=== PATIENT | female | born 1940 | race African-American/Black ===

== ENCOUNTER 2016-12-20 10:56 | Emergency (ER) | payer MEDICARE, BC, OTHER ==
[~2016-12-20] VITALS: Ht 167.6 cm; Wt 90.0 kg
[~2016-12-20 10:56] MED LIST: ARIC5TAB PO; ASPI81TA11 PO; LOSA50TA PO; PRIL40CA PO
[2016-12-20 11:01] VITALS: BP 147/78; PULSE 56; RESP 16; TEMP 97.8; O2SAT 100
[2016-12-20] MEDS ORDERED: ASPI81CH CHEW (11:17)
[2016-12-20] MEDS ORDERED: LOSA50TA PO (11:17)
[2016-12-20] MEDS ORDERED: DONE5TAB7 PO (11:17)
[2016-12-20] MEDS ORDERED: PYRI200T4 PO (11:17)
[2016-12-20] MEDS ORDERED: OMEP20TA PO (11:17)
[2016-12-20 11:18] LABS: BLOOD, URINE TRACE (NEG); GLUCOSE,URINE NEG (NEG); KETONE, URINE NEG (NEG)
[2016-12-20 11:22] LABS: NITRITE,URINE POS (NEG)
[2016-12-20 11:23] LABS: METHOD OF COLLECTION CLEAN CATCH; URINE COLOR DARK-YELLOW (YELLW/STRAW)
[2016-12-20 11:26] LABS: BACTERIA, URINE RARE /hpf; COMMENT (UR) CULTURE INDICATED; CULTURE IF INDICATED CULTURE INDICATED; RBC, URINE 0-3 /hpf (0-3); SQUAMOUS EPITHELIAL CELL URINE 0-2 /hpf (0-5)
--- NOTE | 2016-12-20 11:33 | PD ---
HPI Chief Complaint: Complaint Time Seen by Provider: 11:32 Travel History International Travel<30 days: No Contact w/Intl Traveler<30days: No Traveled to known affect area: No History of Present Illness HPI 76-year-old female with a history of hypertension and GERD presents to the emergency department for evaluation of itching and burning with urination for one week. Patient states she feels as though she has a urinary tract infection. States she was seen at an urgent care clinic 3 days ago and was prescribed Pyridium which she has been taking but her symptoms have persisted. She has not taken any antibiotics for this so far. She states she does have a history of urge incontinence and has to wear adult diapers regularly. She denies a fever, chills, nausea, vomiting, abdominal pain, vaginal discharge. No other complaints. PFSH Past Medical History Hx Anticoagulant Therapy: Yes (asa 81mg) Heart Rhythm Problems: Yes ("SLOW HEART RATE") Cardiovascular Problems: Yes (htn on meds) High Cholesterol: Yes Dementia: Yes Diminished Hearing: No GERD: Yes Hypertension: Yes Immunizations Current: Yes Tetanus Vaccination: Unknown Influenza Vaccination: Yes ?: Not Menopausal: Yes Past Surgical History Abdominal Surgery: Yes (GASTRIC BYPASS) Cholecystectomy: Yes Hysterectomy: Yes Other Surgery: Yes (CARPAL TUNNAL) Social History Alcohol Use: Yes (~2 GLASSES WINE DAILY) Tobacco Use: No Substance Use: No Allergies-Medications (Allergen,Severity, Reaction): Coded Allergies: No Known Allergies (Unverified , 12/20/16) Reported Meds & Prescriptions Reported Meds & Active Scripts Active Keflex (Cephalexin) 500 Mg Cap 500 Mg PO Q12H 7 Days Reported Aspirin 81 Mg Chew 81 Mg CHEW DAILY Donepezil 5 Mg Tab 5 Mg PO HS Omeprazole 20 Mg Tab 20 Mg PO DAILY Losartan (Losartan Potassium) 50 Mg Tab 50 Mg PO DAILY Pyridium (Phenazopyridine HCl) 200 Mg Tab 200 Mg PO Q8H PRN Review of Systems Except as stated in HPI: all other systems reviewed are Neg Physical Exam Narrative GENERAL: Well-nourished and well-developed pleasant female patient in no acute distress who is nontoxic appearing. SKIN: Warm and dry. HEAD: Normocephalic and atraumatic. EYES: No injection, drainage, or hyphema noted. PERRLA. EOMI. ENT: No nasal drainage noted. Oropharynx is clear. NECK: Supple and the trachea is midline. CARDIOVASCULAR: Regular rate and rhythm. RESPIRATORY: Breath sounds are equal bilaterally with no accessory muscle use, wheezing, rhonchi, or crackles. GASTROINTESTINAL: Abdomen is soft, non-tender, and nondistended. NEUROLOGICAL: Awake, alert, and oriented. Normal speech and gait. Cranial nerves are grossly intact. Data Data Last Documented VS Vital Signs Date Time Temp Pulse Resp B/P Pulse Ox O2 Delivery O2 Flow Rate FiO2 12/20/16 11:01 97.8 56 16 147/78 100 Orders Urinalysis - C+S If Indicated (12/20/16 11:06) Urine Culture (12/20/16 11:05) Labs Laboratory Tests Test 12/20/16 11:05 Urine Collection Type CLEAN CATCH Urine Color DARK-YELLOW Urine Turbidity CLEAR Urine pH 6.0 Urine Specific [place] 1.010 Urine Protein NEG mg/dL Urine Glucose (UA) NEG mg/dL Urine Ketones NEG mg/dL Urine Occult Blood TRACE Urine Nitrite POS Urine Bilirubin NEG Urine Leukocyte Esterase TRACE Urine RBC 0-3 /hpf Urine WBC 3-5 /hpf Urine WBC Clumps RARE Urine Squamous Epithelial 0-2 /hpf Cells Urine Bacteria RARE /hpf Microscopic Urinalysis Comment CULTURE INDICATED MDM Medical Decision Making Medical Screen Exam Complete: Yes Emergency Medical Condition: Yes Differential Diagnosis Urethritis versus cystitis versus vaginitis Narrative Course 76-year-old female presents to the emergency room for evaluation of burning and itching with urination for one week. Patient is afebrile, vital signs are stable. Abdominal examination is benign. Urinalysis shows trace occult blood, positive nitrites, trace leukocyte esterase , rare white blood cell clumps, rare bacteria. This consistent with urinary tract infection and the patient will be treated with Keflex. Discussed supportive care and advised follow-up with her PCP. Patient verbalizes understanding and agreement with treatment plan. Diagnosis Primary Impression: Urinary tract infection Qualified Code: N30.01 - Acute cystitis with hematuria Referrals: Primary Care Physician Patient Instructions: General Instructions, Urinary Tract Infection in Women ( ED) Additional Instructions: Take medications as prescribed. Follow-up with your Primary Care Physician. Return to the ED for any acute worsening of symptoms. Med/Other Pt SpecificInfo: Prescription(s) given Scripts Cephalexin (Keflex)500 Mg Ars529 Mg PO Q12H 7 Days Ref 0 Prov:Hollis Williamson MD 12/20/16 Disposition: 01 DISCHARGE HOME Condition: Stable Dana Riley Dec 20, 2016 11:33
[2016-12-20] MEDS ORDERED: CEPH-460 PO (11:34)
== END 2016-12-20 11:43 | disposition home or self-care (01) ==
LOC: PHEFT 10:56
DX: N30.01 Acute cystitis with hematuria (principal); B96.20 Unspecified Escherichia coli [E. coli] as the cause of diseases classified elsewhere; I10 Essential (primary) hypertension; K21.9 Gastro-esophageal reflux disease without esophagitis; N39.41 Urge incontinence; E78.00 Pure hypercholesterolemia, unspecified; F03.90 Unspecified dementia, unspecified severity, without behavioral disturbance, psychotic disturbance, mood disturbance, and anxiety; Z79.82 Long term (current) use of aspirin; Z86.79 Personal history of other diseases of the circulatory system
CPT/HCPCS: 81001; 87077; 87086; 87186; 99283

== ENCOUNTER 2017-07-12 14:27 | Emergency (ER) | payer MEDICARE, BC, OTHER ==
[~2017-07-12] VITALS: Ht 167.6 cm; Wt 87.8 kg
[~2017-07-12 14:27] MED LIST changes: -ARIC5TAB PO; +ASPI81CH CHEW; -ASPI81TA11 PO; +CEPH-460 PO; +DONE5TAB7 PO; +OMEP20TA PO; -PRIL40CA PO; +PYRI200T4 PO
[2017-07-12 14:38] VITALS: BP 145/67; PULSE 49; RESP 18; TEMP 97.3; O2SAT 99
--- NOTE | 2017-07-12 15:30 | PD ---
HPI Chief Complaint: Skin Problem Time Seen by Provider: 15:25 Travel History International Travel<30 days: No Contact w/Intl Traveler<30days: No Traveled to known affect area: No History of Present Illness HPI 76 YO F presents to the ED for evaluation of approximately 8 hour history of painful rash on the left breast. Patient states that the pain is stinging pain. She denies fevers or chills. She denies known injury. No known new exposures. She has a history of shingles on the forehead in the past and states this is similar feeling. PFSH Past Medical History Hx Anticoagulant Therapy: Yes (asa 81mg) Heart Rhythm Problems: Yes ("SLOW HEART RATE") Cardiovascular Problems: Yes (BRADYCARDIA) High Cholesterol: Yes Dementia: Yes Diminished Hearing: No GERD: Yes Hypertension: Yes Immunizations Current: Yes ?: Not Menopausal: Yes Past Surgical History Abdominal Surgery: Yes (GASTRIC BYPASS) Cholecystectomy: Yes Hysterectomy: Yes Other Surgery: Yes (CARPAL TUNNAL) Social History Alcohol Use: Yes (~2 GLASSES WINE DAILY) Tobacco Use: No Substance Use: No Allergies-Medications (Allergen,Severity, Reaction): Coded Allergies: No Known Allergies (Unverified , 07/12/17) Reported Meds & Prescriptions Reported Meds & Active Scripts Active Tramadol (Tramadol HCl) 50 Mg Tab 50 Mg PO Q6H PRN Valacyclovir (Valacyclovir HCl) 1,000 Mg Tab 1,000 Mg PO TID 7 Days Reported Aspirin 81 Mg Chew 81 Mg CHEW DAILY Donepezil 5 Mg Tab 20 Mg PO HS Omeprazole 20 Mg Tab 20 Mg PO DAILY Losartan (Losartan Potassium) 50 Mg Tab 50 Mg PO DAILY Review of Systems Except as stated in HPI: all other systems reviewed are Neg Physical Exam Narrative GENERAL: Well-nourished, well-developed patient. SKIN: Focused skin assessment warm/dry. There is a erythematous, nonblanching, tender rash in the T4 distribution of the left breast. There are 2-3 small pustular appearing areas. Suspicious for shingles. HEAD: Normocephalic. EYES: No scleral icterus. No injection or drainage. NECK: Supple, trachea midline. No JVD or lymphadenopathy. CARDIOVASCULAR: Regular rate and rhythm without murmurs, gallops, or rubs. RESPIRATORY: Breath sounds clear and equal bilaterally. No accessory muscle use. GASTROINTESTINAL: Abdomen soft, non-tender, nondistended. MUSCULOSKELETAL: No cyanosis, or edema. BACK: Nontender without obvious deformity. No CVA tenderness. Data Data Last Documented VS Vital Signs Date Time Temp Pulse Resp B/P (MAP) Pulse Ox O2 Delivery O2 Flow Rate FiO2 07/12/17 14:38 97.3 49 18 145/67 (93) 99 MDM Medical Decision Making Medical Screen Exam Complete: Yes Emergency Medical Condition: Yes Differential Diagnosis Insect bite versus shingles versus contact dermatitis versus other Narrative Course 76 YO F presents to the ED for evaluation of approximately 8 hour history of painful rash on the left breast. Patient states that the pain is stinging pain. She denies fevers or chills. She denies known injury. No known new exposures. She has a history of shingles on the forehead in the past and states this is similar feeling. Vitals reviewed. Physical exam reveals a nonblanching, erythematous rash on the left breast. 3 small areas of vesicular eruption. I suspect this is shingles. Patient is prescribed valacyclovir, tramadol. She is instructed to take the medications as prescribed, follow up with her primary care provider. She is stable and discharged home. Diagnosis Primary Impression: Vesicular eruption Referrals: Primary Care Physician Patient Instructions: General Instructions, Shingles (ED) Additional Instructions: Rest, hydrate. Take valacyclovir as prescribed. Cold compresses applied to the area may help to reduce her pain. Avoid touching or handling the rash as possible. Follow-up with her primary care provider this week. Return to the ED for any urgent or emergent medical condition. Med/Other Pt SpecificInfo: Prescription(s) given Scripts Tramadol (Tramadol) 50 Mg Tab 50 MG PO Q6H Y for PAIN, #15 TAB 0 Refills Prov: Gela Owens MD 07/12/17 Valacyclovir (Valacyclovir) 1,000 Mg Tab 1000 MG PO TID for Mgmt Viral Infection for 7 Days, TAB 0 Refills Prov: Gela Owens MD 07/12/17 Disposition: 01 DISCHARGE HOME Condition: Stable Kasey Murdock Jul 12, 2017 15:30
[2017-07-12] MEDS ORDERED: VALA1TAB PO ×2 (15:51→16:25)
[2017-07-12] MEDS ORDERED: TRAM50TA PO (17:01)
== END 2017-07-12 17:12 | disposition home or self-care (01) ==
LOC: PHEFT 14:27
DX: R23.8 Other skin changes (principal); R00.1 Bradycardia, unspecified; F03.90 Unspecified dementia, unspecified severity, without behavioral disturbance, psychotic disturbance, mood disturbance, and anxiety; K21.9 Gastro-esophageal reflux disease without esophagitis; I10 Essential (primary) hypertension; Z86.19 Personal history of other infectious and parasitic diseases; Z79.82 Long term (current) use of aspirin
CPT/HCPCS: 99284

== ENCOUNTER 2017-10-25 15:48 | Emergency (ER) | payer OTHER, MEDICARE, BC ==
[~2017-10-25] VITALS: Ht 166.4 cm; Wt 94.0 kg
[~2017-10-25 15:48] MED LIST changes: +ASPI-516 CHEW; -ASPI81CH CHEW; -CEPH-460 PO; -OMEP20TA PO; +OMEP20TA93 PO; -PYRI200T4 PO; +TRAM50TA PO; +VALA1TAB PO
[2017-10-25 15:50] VITALS: BP 195/80; PULSE 53; RESP 16; TEMP 97.9; O2SAT 97
[2017-10-25] MEDS ORDERED: CALC1TAB12 PO (16:11)
[2017-10-25] MEDS ORDERED: MULTTAB67 PO (16:11)
[2017-10-25] MEDS ORDERED: TURM538C PO (16:11)
[2017-10-25] MEDS ORDERED: FERR325T18 PO (16:11)
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
[2017-10-25] MEDS ORDERED: CYCL5TAB PO (17:57)
[2017-10-25] MEDS ORDERED: PRED20 PO (17:57)
[2017-10-25] MEDS ORDERED: TRAM50TA PO (17:57)
== END 2017-10-25 18:07 | disposition home or self-care (01) ==
LOC: PHEFT 15:48
DX: S16.1XXA Strain of muscle, fascia and tendon at neck level, initial encounter (principal); S20.219A Contusion of unspecified front wall of thorax, initial encounter; S39.012A Strain of muscle, fascia and tendon of lower back, initial encounter; I10 Essential (primary) hypertension; E78.00 Pure hypercholesterolemia, unspecified; V49.49XA Driver injured in collision with other motor vehicles in traffic accident, initial encounter; Y92.410 Unspecified street and highway as the place of occurrence of the external cause; Z79.82 Long term (current) use of aspirin
CPT/HCPCS: 70450; 71010; 72100; 72125

== ENCOUNTER 2018-02-20 16:38 | Emergency (ER) | payer MEDICARE, BC, OTHER ==
[~2018-02-20 16:38] MED LIST changes: +CALC1TAB12 PO; +CYCL5TAB PO; +FERR325T18 PO; +MULTTAB67 PO; +PRED20 PO; +TURM538C PO; -VALA1TAB PO
[2018-02-20 16:43] VITALS: BP 173/90; PULSE 60; RESP 20; TEMP 98.2; O2SAT 100
[2018-02-20] MEDS ORDERED: NITROGLYCERIN 0.4 MG SL 25 TABS/BTL SL ONE (17:00)
[2018-02-20] MEDS ORDERED: ASPIRIN 325 MG TAB PO ONE (17:00)
--- NOTE | 2018-02-20 17:29 | PD ---
HPI Chief Complaint: Chest Pain Time Seen by Provider: 16:49 Travel History International Travel<30 days: No Contact w/Intl Traveler<30days: No Traveled to known affect area: No History of Present Illness HPI 77-year-old female that presents to the ED for evaluation of chest pain. Patient has had chest pressure for the past hour. Per patient she came out of the movies and she developed the chest pain. Patient feels like a pressure appears not going away. Per patient she had something like this yesterday but it went away fairly quickly. Per patient she went to Dr. harp last week for an appointment and has been follow-up by him and she had no issues at that time. Per patient she had a stress test just a month ago by him. Patient reports no shortness of breath but feels like she has pressure in her chest. She has nitroglycerin with her but she did not take it. She denies any abdominal pain. No numbness, drooling, weakness. No urinary or bowel movement issues. No nausea or vomiting. Denies any headache. No radiation of the pain. No recent travel. Takes Eliquis. States that the discomfort is 8 out of 10. No history of CABG or stent but she does state that she has a history of a pacemaker for bradycardia. PFSH Past Medical History Hx Anticoagulant Therapy: Yes (asa 81mg) Arthritis: Yes Heart Rhythm Problems: Yes ("SLOW HEART RATE") Cardiovascular Problems: Yes (HTN) High Cholesterol: Yes Dementia: Yes Diminished Hearing: No GERD: Yes Hypertension: Yes Immunizations Current: Yes Menopausal: Yes Past Surgical History Abdominal Surgery: Yes (GASTRIC BYPASS) Cholecystectomy: Yes Hysterectomy: Yes Other Surgery: Yes (CARPAL TUNNAL) Social History Alcohol Use: Yes (~2 GLASSES WINE DAILY) Tobacco Use: No Substance Use: No Allergies-Medications (Allergen,Severity, Reaction): Coded Allergies: No Known Allergies (Unverified Adverse Reaction, Unknown, 10/25/17) Reported Meds & Prescriptions Reported Meds & Active Scripts Active Tramadol (Tramadol HCl) 50 Mg Tab 50 Mg PO Q6H PRN Flexeril (Cyclobenzaprine HCl) 5 Mg Tab 5 Mg PO TID Prednisone 20 Mg Tab 20 Mg PO BID 5 Days Reported Calcium 500 +D (Calcium Carbonate-Cholecalciferol) 500-400 Mg-Unit Tab 1 Tab PO BID Ferrous Sulfate 325 Mg (65 Mg Iron) Tablet 325 Mg PO DAILY Multiple Vitamin 1 Tab 1 Tab PO DAILY Turmeric (Turmeric Root Extract) 538 Mg Capsule 1 Tab PO DAILY Aspirin 81 Mg Chew 81 Mg CHEW DAILY Donepezil 5 Mg Tab 20 Mg PO HS Omeprazole 20 Mg Tab 20 Mg PO DAILY Losartan (Losartan Potassium) 50 Mg Tab 50 Mg PO DAILY Review of Systems Except as stated in HPI: all other systems reviewed are Neg Physical Exam Narrative GENERAL: SKIN: Warm and dry. HEAD: Atraumatic. Normocephalic. EYES: Pupils equal and round. No scleral icterus. No injection or drainage. ENT: No nasal bleeding or discharge. Mucous membranes pink and moist. Tongue is midline. No uvula deviation. NECK: Trachea midline. No JVD. CARDIOVASCULAR: Regular rate and rhythm. No murmurs, S3, S4. RESPIRATORY: No accessory muscle use. Clear to auscultation. Breath sounds equal bilaterally. GASTROINTESTINAL: Abdomen soft, non-tender, nondistended. Hepatic and splenic margins not palpable. MUSCULOSKELETAL: Extremities without clubbing, cyanosis, or edema. No obvious deformities. Full range of motion of the upper and lower extremities bilaterally. 2+ pulses bilaterally. NEUROLOGICAL: Awake and alert. No obvious cranial nerve deficits. Motor grossly within normal limits. Five out of 5 muscle strength in the arms and legs. Normal speech. PSYCHIATRIC: Appropriate mood and affect; insight and judgment normal. Data Data Last Documented VS Vital Signs Date Time Temp Pulse Resp B/P (MAP) Pulse Ox O2 Delivery O2 Flow Rate FiO2 02/20/18 16:43 98.2 60 20 173/90 (117) 100 Orders Orders Electrocardiogram (02/20/18 16:46) B-Type Natriuretic Peptide (02/20/18 16:46) Ckmb (Isoenzyme) Profile (02/20/18 16:46) Complete Blood Count With Diff (02/20/18 16:46) Comprehensive Metabolic Panel (02/20/18 16:46) Magnesium (Mg) (02/20/18 16:46) Prothrombin Time / Inr (Pt) (02/20/18 16:46) Act Partial Throm Time (Ptt) (02/20/18 16:46) Troponin I (02/20/18 16:46) Lipase (02/20/18 16:46) Chest, Pa & Lat (02/20/18 16:46) Nitroglycerin Sl (Nitrostat Sl) (02/20/18 17:00) Aspirin (Aspirin) (02/20/18 17:00) CKMB (02/20/18 17:30) CKMB% (02/20/18 17:30) Labs Laboratory Tests Test 02/20/18 17:30 White Blood Count 3.8 TH/MM3 Red Blood Count 3.86 MIL/MM3 Hemoglobin 12.1 GM/DL Hematocrit 36.1 % Mean Corpuscular Volume 93.4 FL Mean Corpuscular Hemoglobin 31.3 PG Mean Corpuscular Hemoglobin Concent 33.5 % Red Cell Distribution Width 13.1 % Platelet Count 167 TH/MM3 Mean Platelet Volume 9.2 FL Neutrophils (%) (Auto) 44.6 % Lymphocytes (%) (Auto) 40.5 % Monocytes (%) (Auto) 12.3 % Eosinophils (%) (Auto) 1.8 % Basophils (%) (Auto) 0.8 % Neutrophils # (Auto) 1.7 TH/MM3 Lymphocytes # (Auto) 1.5 TH/MM3 Monocytes # (Auto) 0.5 TH/MM3 Eosinophils # (Auto) 0.1 TH/MM3 Basophils # (Auto) 0.0 TH/MM3 CBC Comment DIFF FINAL Differential Comment Prothrombin Time 10.7 SEC Prothromb Time International Ratio 1.1 RATIO Activated Partial Thromboplast Time 27.1 SEC Blood Urea Nitrogen 16 MG/DL Creatinine 0.80 MG/DL Random Glucose 66 MG/DL Total Protein 7.2 GM/DL Albumin 2.9 GM/DL Calcium Level 8.5 MG/DL Magnesium Level 2.0 MG/DL Alkaline Phosphatase 78 U/L Aspartate Amino Transf (AST/SGOT) 31 U/L Alanine Aminotransferase (ALT/SGPT) 36 U/L Total Bilirubin 0.3 MG/DL Sodium Level 144 MEQ/L Potassium Level 3.8 MEQ/L Chloride Level 110 MEQ/L Carbon Dioxide Level 27.7 MEQ/L Anion Gap 6 MEQ/L Estimat Glomerular Filtration Rate 84 ML/MIN Total Creatine Kinase 101 U/L Creatine Kinase MB 1.1 NG/ML Troponin I LESS THAN 0.02 NG/ML B-Type Natriuretic Peptide 34 PG/ML Lipase 122 U/L MDM Medical Decision Making Medical Screen Exam Complete: Yes Emergency Medical Condition: Yes Medical Record Reviewed: Yes Interpretation(s) EKG showed paced rhythm with no sign of acute ischemia and arrhythmia. Read by me and attending. CBC & BMP Diagram 02/20/18 17:30 Total Protein 7.2, Albumin 2.9 L, Calcium Level 8.5, Magnesium Level 2.0, Alkaline Phosphatase 78, Aspartate Amino Transf (AST/SGOT) 31, Alanine Aminotransferase (ALT/SGPT) 36, Total Bilirubin 0.3 troponin and CKMB negative coags WNL Last Impressions Chest X-Ray 02/20/18 1646 Signed Impressions: Service Date/Time: Tuesday, February 20, 2018 17:35 - CONCLUSION: 1. Stable elevation of the left hemidiaphragm. 2. Otherwise, no acute cardiac pulmonary process Shyam Mosley MD Differential Diagnosis Chest pain versus atypical chest pain versus ACS versus pancreatitis versus an STEMI Narrative Course 77-year-old female that presents to the ED for evaluation of chest pain. Patient was properly examined and was found to have signs and symptoms consistent with appears to be chest pain. Unclear etiology at this time. Labs and imaging order. Patient was given aspirin and nitroglycerin. Labs and imaging showed no sign of acute disease. Patient's pain completely gone. Case was discussed with Dr. Ontiveros who is on-call for Dr. Nicolas, the patient's lime burner, who recommends patient can be discharged with instructions to follow-up with his lime burner tomorrow. Patient already had a stress test within less than 1 month that was negative. I do not see any need for further evaluation at this time. Patient agrees with this plan. Patient was told to follow with lime burner this week. See ED worsening symptoms. All questions were answered to the best of my ability. Follow up with PCP. Diagnosis Primary Impression: Atypical chest pain Patient Instructions: General Instructions Additional Instructions: Follow-up with your lime burner this week. He is expecting you. See ED worsening symptoms. Follow-up with PCP. Med/Other Pt SpecificInfo: No Change to Meds Disposition: 01 DISCHARGE HOME Condition: Stable Yimi Schafer Feb 20, 2018 17:29
[2018-02-20 17:54] LABS: AUTOMATED NEUTROPHIL # 1.7 TH/MM3 (1.8-7.7); BASOPHIL % 0.8 % (0.0-2.0); EOSINOPHIL # 0.1 TH/MM3 (0-0.4); EOSINOPHIL % 1.8 % (0.0-4.0); HEMATOCRIT 36.1 % (35.0-46.0); HEMOGLOBIN 12.1 GM/DL (11.6-15.3); LYMPH % 40.5 % (9.0-44.0); LYMPHOCYTE # 1.5 TH/MM3 (1.0-4.8); MEAN CELL VOLUME 93.4 FL (80.0-100.0); MEAN CORPUSCULAR HEMOGLOBIN 31.3 PG (27.0-34.0); MEAN CORPUSCULAR HGB CONC 33.5 % (32.0-36.0); MEAN PLATELET VOLUME 9.2 FL (7.0-11.0); MONO % 12.3 % (0.0-8.0); MONOCYTE # 0.5 TH/MM3 (0-0.9); NEUT % 44.6 % (16.0-70.0); PLATELET COUNT 167 TH/MM3 (150-450); RED BLOOD COUNT 3.86 MIL/MM3 (4.00-5.30); RED CELL DISTRIBUTION WIDTH 13.1 % (11.6-17.2); WHITE BLOOD COUNT 3.8 TH/MM3 (4.0-11.0)
[2018-02-20 18:02] LABS: INTERNATIONAL NORMALIZED RATIO 1.1 RATIO; PROTHROMBIN TIME - PATIENT 10.7 SEC (9.8-11.6)
--- NOTE | 2018-02-20 18:06 | RADRPT ---
EXAM DATE/TIME: 02/20/2018 17:35 [facility] COMPARISON: CHEST SINGLE AP, October 25, 2017, 16:48. INDICATIONS : Chest pain MEDICAL HISTORY : Cardiovascular disease. Hypertension. Gastroesophageal reflux disease. Anticoagulant therapy SURGICAL HISTORY : Pacemaker. Cholecystectomy. Hysterectomy ENCOUNTER: Initial ACUITY: 1 day PAIN SCORE: 2/10 LOCATION: chest FINDINGS: PA and lateral views of the chest demonstrate stable elevation of left hemidiaphragm. Lungs are other burden clear for an acute infiltrate. Dextroscoliosis of the dorsal spine. CONCLUSION: 1. Stable elevation of the left hemidiaphragm. 2. Otherwise, no acute cardiac pulmonary process Shyam Mosley MD on February 20, 2018 at 18:03 Board Certified Radiologist. This report was verified electronically.
[2018-02-20 18:11] LABS: ALBUMIN 2.9 GM/DL (3.4-5.0); ALT (GPT) 36 U/L (10-53); AST (GOT) 31 U/L (15-37); BICARBONATE 27.7 MEQ/L (21.0-32.0); BLOOD UREA NITROGEN 16 MG/DL (7-18); CALCIUM 8.5 MG/DL (8.5-10.1); CHLORIDE 110 MEQ/L (98-107); GLOMERULAR FILTRATION RATE 84 ML/MIN (>89); GLUCOSE,RANDOM 66 MG/DL (74-106); SODIUM (NA) 144 MEQ/L (136-145)
[2018-02-20 18:15] LABS: ALKALINE PHOSPHATASE 78 U/L (45-117); TOTAL BILIRUBIN ADULT 0.3 MG/DL (0.2-1.0); TOTAL PROTEIN 7.2 GM/DL (6.4-8.2); TROPONIN I LESS THAN 0.02 NG/ML (0.02-0.05)
--- NOTE | 2018-02-21 15:15 | EKG ---
Date Performed: 02/20/2018 Time Performed: 17:05:18 PTAGE: 77 years EKG: ELECTRONIC ATRIAL PACEMAKER ABNORMAL RHYTHM ECG Since the PREVIOUS TRACING , no significant change noted PREVIOUS TRACIN08/24/2016 10.18 DOCTOR: Ton Pak Interpretating Date/Time 02/21/2018 15:13:00
== END 2018-02-20 19:43 | disposition home or self-care (01) ==
LOC: NEPE 16:38
DX: R07.89 Other chest pain (principal); R94.31 Abnormal electrocardiogram [ECG] [EKG]; I10 Essential (primary) hypertension; Z95.0 Presence of cardiac pacemaker; Z98.84 Bariatric surgery status; Z79.82 Long term (current) use of aspirin
CPT/HCPCS: 71046; 80053; 82550; 82552; 83690; 83735; 83880; 84484; 85025; 85610; 85730; 93005; 99285